=== PATIENT | male | born 1970 | race Asian ===

== ENCOUNTER 2022-06-10 09:17 | Outpatient (CLI) | payer BC, SELFPAY ==
[2022-06-10 15:35] LABS: Cholesterol* 217 mg/dL (90-199); Triglycerides* 352 mg/dL (40-149)
[2022-06-10 15:36] LABS: HDL Cholesterol* 37 mg/dL (>=40); LDL Cholesterol Calculated 110 mg/dL (<100)
[2022-06-10 16:07] LABS: PSA Screen* 0.76 ng/mL (0.10-4.00)
== END 2022-06-10 09:18 | disposition home or self-care (01) ==
PROVIDERS: PCP Family Medicine; Visit Provider Family Medicine
DX: Z00.00 Encounter for general adult medical examination without abnormal findings (principal); E78.00 Pure hypercholesterolemia, unspecified; R00.0 Tachycardia, unspecified; R53.83 Other fatigue; Z12.5 Encounter for screening for malignant neoplasm of prostate
CPT/HCPCS: 80061; 84153; 84443

== ENCOUNTER 2022-07-02 07:48 | Outpatient (CLI) | payer BC, SELFPAY | END 2022-07-02 07:49 | disposition home or self-care (01) | LOC: RAD 07:48 | PROVIDERS: PCP Family Medicine; Visit Provider Family Medicine | DX: R00.0 Tachycardia, unspecified (principal) | CPT/HCPCS: 93306 ==

== ENCOUNTER 2023-06-13 15:00 | Outpatient (CLI) | payer BC, SELFPAY | END 2023-06-13 15:01 | disposition home or self-care (01) | LOC: NFLDREF 06-14 13:01 | PROVIDERS: PCP Family Medicine; Visit Provider Family Medicine | DX: Z00.00 Encounter for general adult medical examination without abnormal findings (principal); D22.9 Melanocytic nevi, unspecified; R53.83 Other fatigue; E78.00 Pure hypercholesterolemia, unspecified; Z91.030 Bee allergy status; Z12.5 Encounter for screening for malignant neoplasm of prostate | CPT/HCPCS: 80053; 80061; 84153 ==

== ENCOUNTER 2023-10-13 08:08 | Outpatient (CLI) | payer BC, SELFPAY | END 2023-10-13 08:09 | disposition home or self-care (01) | LOC: NFLDREF 10-14 05:44 | PROVIDERS: PCP Family Medicine; Referring Provider Family Medicine; Visit Provider Family Medicine | DX: E78.00 Pure hypercholesterolemia, unspecified (principal) | CPT/HCPCS: 80061; 80076 ==

== ENCOUNTER 2024-07-30 17:54 | Outpatient (CLI) | payer BC, SELFPAY | END 2024-07-30 17:55 | disposition home or self-care (01) | PROVIDERS: PCP Family Medicine; Visit Provider Family Medicine | DX: E78.00 Pure hypercholesterolemia, unspecified (principal); R03.0 Elevated blood-pressure reading, without diagnosis of hypertension; Z12.5 Encounter for screening for malignant neoplasm of prostate | CPT/HCPCS: 80053; 80061; G0103 ==